=== PATIENT | male | born 1960 | race African-American/Black ===

== ENCOUNTER 2018-04-12 08:59 | Day surgery (SDC) | payer OTHER ==
[2018-04-12] MEDS ORDERED: ALBUTEROL SULFATE 0.083% NEB 2.5 MG/3 ML AMPUL NEB ONE (09:52)
[2018-04-12] MEDS ORDERED: PROMETHAZINE HCL INJ 25 MG/1 ML VIAL IV PRN ×2 (10:45)
[2018-04-12] MEDS ORDERED: FENTANYL CITRATE INJ/PF 100 MCG/2 ML AMPUL IV PRN ×3 (10:45)
[2018-04-12] MEDS ORDERED: DIPHENHYDRAMINE HCL 50 MG/ML VIAL IV PRN (10:45)
[2018-04-12] MEDS ORDERED: MEPERIDINE HCL/PF INJ 25 MG/1 ML DISP.SYRIN IV PRN (10:45)
[2018-04-12 15:34] VITALS: BP 132/89
--- NOTE | 2018-04-12 20:04 | Operative Report ---
Operative Report DATE OF SURGERY: 04/12/18 Operative Report: the risk, benefits and alternatives of the procedure are explained to the patient in detail he is taken to the OR Time out is called and Propofol is provided rectal exam is done the Olympus videoscope is inserted into the patient's rectum it is advanced to the cecum this is identified by the usual anatomical landmarks the scope is slowly withdrawn the prep is good tubular and concentric views of the colon are obtained retroflexion is obtained following this the EGD is performed the esophagus, stomach and duodenum are obtained PREOPERATIVE DIAGNOSIS: dysphagia. colorectal cancer screening POSTOPERATIVE DIAGNOSIS: 1 descending colon polyp removed via snare polypectomy. 3 sigmoid polyps removed, only 2 were retrieved. 3 rectal polyps revmoed via snare polypectomy. internal hemorrhoids. on EGD, the is a schatzki 's ring that was broken. esophagitis noted. gastritis, s/p biopsy to rule out for H/Pylori. duodenitis OPERATION: colonoscopy with snare polypectomy. EGD with biopsy SURGEON: ZACH GARCIA ANESTHESIA: LMAC TISSUE REMOVED OR ALTERED: as noted above COMPLICATIONS: none ESTIMATED BLOOD LOSS: none INTRAOPERATIVE FINDINGS: as noted above PROCEDURE: patient tolerated the procedure well did not have any post procedure complications he is discharged in good condition discharge date: 04/12/18 discharge diet: regular discharge activity: regular 2-3 weeks follow up 1 year surveillance due to the number of polyps will wait on biopsy suspect Schatzki's ring the cause for his dysphagia if does not help, may need manometry study
--- NOTE | 2018-04-12 22:01 | EKG REPORT ---
SEVERITY:- ABNORMAL ECG - SINUS RHYTHM PROBABLE LEFT ATRIAL ABNORMALITY RBBB AND LPFB INFERIOR INFARCT, AGE INDETERMINATE : Confirmed by: Irena Zafar 12-Apr-2018 22:00:03
== END 2018-04-12 15:25 | disposition home or self-care (01) ==
LOC: OROUT 08:59
PROVIDERS: ATTEND Internal Medicine Gastroenterology
DX: Z12.11 Encounter for screening for malignant neoplasm of colon (principal); D12.4 Benign neoplasm of descending colon; K63.5 Polyp of colon; K29.50 Unspecified chronic gastritis without bleeding; K20.9 Esophagitis, unspecified; K22.2 Esophageal obstruction; K29.80 Duodenitis without bleeding; F17.210 Nicotine dependence, cigarettes, uncomplicated; Z79.899 Other long term (current) drug therapy
CPT/HCPCS: 43239; 45380; 813; 88305; 93005; 93010

== ENCOUNTER → 2018-09-23 | Outpatient (CLI) | payer OTHER ==
--- NOTE | 2018-09-23 13:42 | RADIOLOGY REPORT (SQ) ---
EXAM DESCRIPTION: MRI HEAD COMBO COMPLETED DATE/TIME: 09/23/2018 1:22 pm REASON FOR STUDY: DISEQUILIBRIUM SYNDROME E87.8 OTH DISORDERS OF ELECTROLYTE AND FLUID BALANCE, NEC COMPARISON: None. TECHNIQUE: Multiplanar imaging includes non-contrasted T1, T2, FLAIR, diffusion with ADC map and pos t gadolinium contrast sequences. Additional thin slice images with and without gadolinium contrast a cquired in the posterior fossa. Images stored on PACS. CONTRAST TYPE AND DOSE: 15 mL Dotarem. RENAL FUNCTION: GFR > 60. LIMITATIONS: None. FINDINGS: ANATOMY: No anomalies. Normal vascular flow voids. Pituitary fossa normal. CSF SPACES: Normal in size and contour. CEREBRUM: Sulci and gyri normal in size and contour. Scattered areas of high signal in the periventr icular white matter compatible with microvascular ischemia. . No hemorrhage. No edema, masses or ma ss effect. No enhancing lesions. POSTERIOR FOSSA: No signal alteration. No hemorrhage. No edema, masses or mass effect. Internal mary tory canals, cerebello-pontine angles, mastoids normal. No enhancing lesions. Detailed imaging of the 5th, 7th, and 8th nerves and [place] within normal limits. DIFFUSION IMAGING: Negative for acute or sub-acute infarction. ORBITS: No masses. Globes normal. PARANASAL SINUSES: No fluid levels. Mucosa normal. OTHER: No other significant finding. IMPRESSION: No significant finding in the posterior fossa. Mild microvascular ischemia. TECHNICAL DOCUMENTATION: JOB ID: [id number] [employer]- All Rights Reserved Reading location - IP/workstation name: [email or web address]
== END ==
LOC: RAD 11:53
PROVIDERS: ATTEND Otolaryngology
DX: E87.8 Other disorders of electrolyte and fluid balance, not elsewhere classified (principal)
CPT/HCPCS: 82565; 70553; A9576

== ENCOUNTER → 2019-02-01 | Outpatient (CLI) | payer OTHER ==
--- NOTE | 2019-02-01 09:24 | ST Modified Barium Swallow ---
Recommendation - Recommendations Recommendations: Normal oral and pharyngeal phase swallowing seen. No additional speech pathology follow up or recommendations indicated. Educated patient on reflux precautions. Medical Diagnoses - Medical Diagnoses Medical Diagnosis Description & ICD-10 Code(s): dysphagia R13.10 Other Medical Diagnoses/Co-Morbidities: per patient report: reflux, "mass in right lung". per medical record review: moderate esophageal dysmotility found in 2016, Schatzki's ring found and broken in 2018. ST Modified Barium Swallow - General Date: 02/01/19 Referring Physician: Dr. Willams Risks/Precautions: None Date of Onset: 01/10/14 - approximate onset date per patient report Reason for Referral: difficulty swallowing - History History obtained from: Patient, Other - EMR -: Medical - per patient report: Patient states having difficulty with foods occasionally "getting stuck" in his lower throat for 5 years. Reports that this happens infrequently, every 2-3 weeks. Does report having previously been on reflux medications, which helped, but states that they don't work any more. Is no longer taking reflux medications. Therapist reviewed patient's EMR, which indicated a barium swallow in 2016 found "moderate esophageal dysmotility". EMR also contained record of a Schatzki's ring being identified and broken in 2018. Patient denies pneumonia or bronchitis. Medications: per patient report: aspirin, blood pressure medication Allergies: none reported - Functional Status Prior Functional Status: INDEPENDENT: feeding Current Functional Limitations: feeding - infrequent globus - Subjective Patient/caregiver goal(s): r/o struct. abnormality Cognitive-Linguistic Function: WNL Speech Intelligibility: WNL Current Nutritional Means: PO Current PO diet: Regular Pain: Patient reports, 0/5 - Objective Assessment: Upright, Left Lateral - Food Trials Used Food trials used: Thin liquids, Pureed, Regular The patient: Was Able to Self Feed - Oral-Motor Skills Dentition: Partial Velo-pharyngeal function: Unremarkable Laryngeal Function: clear voicing - Assessment Oral prep: Normal Labial closure: Adequate Leakage: None Mastication: Adequate Lingual Movement: Normal Oral stage: Normal for this Procedure - Pharyngeal Stage Initiation of Pharyngeal Stage Reflex: Normal Decreased laryngeal elevation: No Reduced Velopharyngeal Closure: no Reduced pressure generation: No reduced tongue-based retraction: No Pre-swallow pooling in valleculae: None Pre-Swallow pooling in pyriforms: None Reduced Thyro-Hyoid approximation: No Reduced epiglottic excursion: No Reduced pharyngeal peristalsis/contraction: No Multiple Swallows with: Cleared w/ Dry Swallow Post-swallow residulas vallecular: Mild Post-Swallow residuals in pyriforms: None Reduced Cricopharyngeal opening: No - Fall Risk Assessment Medications/Conditions that increase fall risks include: Antidepressants, sedatives, anti-arrhythmic, diuretic, benzodiazipenes, neuroleptics. BP r egulation problems, cardiac problems, balance or gait deficits, neurological problems. Is patient considered at risk for falls: no Fall Risk Actions Taken: No action needed - Behavioral Observations During evaluation process patient: was pleasant, was cooperative, able to answer questions - Treatment / Educational Needs: Treatment/Education Needs: Treatment consisted of patient education on the role of the Speech Pathologist. Patient's plan of care and golas were communicated as well as scheduling and attendance policies. Recommendations for initial home program were shared. Patient demonstrated understanding and verbalized agreement. - Impression/Summary Laryngeal Penetration: Yes - during swallow with thin liquids. Did not reach level of vocal folds. Challenged the swallow with multiple subsequent straw sips, no deep penetration or aspiration seen. Tracheal Aspiration: no Patient presents with: Normal swallow at eval Risk of Aspiration: Minimal Risk of nutritional compromise: None - Recommendations Solid diet recommendations: Regular Liquid Diet Modification: Thin Pt/Family education and followup with MD: Yes Dysphagia therapy with SUPERVISOR OF WAY: no Reflux Precautions: Taught to Patient Recommended techniques: Fully Upright During Meal Supervision: Independent Information, Precautions and Recommendations: Patient (Written), Patient (Verbal) - Plan of Care Strategies to optimize patient understanding include:: ongoing assessment of educational needs, implementation of educational strategies, and re-education. - - -: Thank you for the opportunity to work with this patient and his/her family. Should you have any questions about this patient's plan or progress, I can be reached at [phone].
--- NOTE | 2019-02-01 10:05 | RADIOLOGY REPORT (SQ) ---
EXAM DESCRIPTION: SUPA SWALLOW COMPLETED DATE/TIME: 02/01/2019 9:09 am REASON FOR STUDY: DYSPHAGIA (R13.10) R13.10 DYSPHAGIA, UNSPECIFIED COMPARISON: None. TECHNIQUE: Videofluoroscopic swallowing examination was performed in conjunction with speech patholo gy. Videofluoroscopic imaging was obtained and reviewed and these are the findings: RADIATION DOSE: Fluoro time 1.32 minutes 1 images saved to PACS. LIMITATIONS: None FINDINGS: The patient was brought into the fluoro room and placed upright on a modified barium swall ow chair. The patient was then given multiple consistencies mixed with barium to swallow under live fluoroscopic video guidance. According to the Speech Pathologist there was flash laryngeal penetrati on seen with thin barium. No aspiration identified. All other consistencies swallowed without incid ent. Please refer to the speech pathology report for further details. IMPRESSION: FLASH LARYNGEAL PENETRATION WITHOUT ASPIRATION SEEN WITH THIN BARIUM. PLEASE SEE SPEECH PATHOLOGIST REPORT FOR OTHER FINDINGS AND RECOMMENDATIONS. COMMENT: NONE Quality ID [id number]: Final reports for procedures using fluoroscopy that document radiation exposure alcides selvin, or exposure time and number of fluorographic images (if radiation exposure indices are not avail able) TECHNICAL DOCUMENTATION: JOB ID: [id number] [employer]- All Rights Reserved Reading location - IP/workstation name: [email or web address] [id number]
== END ==
LOC: RAD 08:17
PROVIDERS: ATTEND Internal Medicine Pulmonary Disease
DX: R13.10 Dysphagia, unspecified (principal); R91.8 Other nonspecific abnormal finding of lung field
CPT/HCPCS: 74230

== ENCOUNTER → 2019-09-11 | Outpatient (CLI) | payer OTHER ==
--- NOTE | 2019-09-11 15:02 | RADIOLOGY REPORT (SQ) ---
EXAM DESCRIPTION: PET CT SKULL/THIGH COMPLETED DATE/TIME: 09/11/2019 1:29 pm REASON FOR STUDY: PULMONARY NODULE (R91.1) R91.8 OTHER NONSPECIFIC ABNORMAL FINDING OF LUNG FIELD COMPARISON: Prior CT and PET report. No images available. RADIONUCLIDE AND DOSE: 11.21 mCi F18 FDG The route of agent administration: Intravenous FASTING BLOOD SUGAR: 97 mg/dl CONTRAST TYPE AND DOSE: No CT contrast given. TECHNIQUE: Blood glucose level was verified. Above dose of FDG was injected intravenously. 2-D seg mented attenuation correction images were obtained from the base of the skull to the midthighs. Nonc ontrast CT images were obtained for attenuation correction and fusion with emission images. CT image s were performed without oral or intravenous contrast and are not sensitive for parenchymal lesions. A series of overlapping emission PET images were obtained. Images reviewed and manipulated at [facility] work station by the radiologist. Images stored on PACS. LIMITATIONS: None. FINDINGS: HEAD AND NECK: Symmetric uptake throughout the oropharynx without CT correlate, likely ph ysiologic. Medialization of the right vocal fold without asymmetric FDG uptake. No other areas of a bnormal metabolic activity in the soft tissues of the head and neck. CHEST: There is a right lower lobe medial nodular opacity measuring 1.8 cm (series 3, image 106) with mild ill-defined FDG uptake (max SUV 2.6). No other areas abnormal focal uptake within the thorax. ABDOMEN AND PELVIS: Background hepatic activity max SUV 3.1. No focal areas of abnormal uptake withi n the abdomen or pelvis. Physiologic activity noted within the gastrointestinal and genitourinary sy stem. PROXIMAL LOWER EXTREMITIES: No areas of abnormal metabolic activity in the soft tissues of the lower extremities. BONES: No abnormal metabolic activity in the visualized skeleton. ADDITIONAL CT FINDINGS: 1.8 cm right lower lobe irregular nodule. Scattered coronary atherosclerosis . Circumferential distal esophageal wall thickening mild gas fluid level. No evidence of acute intr a-abdominal/pelvic process. IMPRESSION: 1. 1.8 cm right lower lobe pulmonary nodule with mild FDG uptake (max SUV 2.6, backgrou nd hepatic activity max SUV 3.1). Findings nonspecific and may be seen with infectious/inflammatory etiology although neoplastic process not excluded. 2. No other areas of abnormal pathologic FDG uptake. 3. Medialization of the right vocal fold without asymmetric FDG uptake. Findings can be seen with f ocal cord paralysis. Direct visualization could be considered for further characterization. 4. Diffuse circumferential distal esophageal wall thickening which can be seen with esophagitis. TECHNICAL DOCUMENTATION: JOB ID: [id number] [employer]- All Rights Reserved Reading location - IP/workstation name: [email or web address]
== END ==
LOC: RAD 08:02
PROVIDERS: ATTEND Internal Medicine Pulmonary Disease
DX: R91.1 Solitary pulmonary nodule (principal); R91.8 Other nonspecific abnormal finding of lung field
CPT/HCPCS: 78815; A9552

== ENCOUNTER → 2020-09-23 | Outpatient (CLI) | payer OTHER ==
--- NOTE | 2020-09-25 11:13 | RADIOLOGY REPORT (SQ) ---
EXAM DESCRIPTION: PET CT SKULL/THIGH IMAGES COMPLETED DATE/TIME: 09/23/2020 3:46 pm REASON FOR STUDY: (R91.1)SOLITARY PULMONARY NODULE R91.1 SOLITARY PULMONARY NODULE COMPARISON: PET from 09/11/2019. RADIONUCLIDE AND DOSE: 10.2 mCi F18 FDG The route of agent administration: Intravenous FASTING BLOOD SUGAR: 89 mg/dl CONTRAST TYPE AND DOSE: No CT contrast given. TECHNIQUE: Blood glucose level was verified. Above dose of FDG was injected intravenously. 2-D seg mented attenuation correction images were obtained from the base of the skull to the midthighs. Nonc ontrast CT images were obtained for attenuation correction and fusion with emission images. CT image s were performed without oral or intravenous contrast and are not sensitive for parenchymal lesions. A series of overlapping emission PET images were obtained. Images reviewed and manipulated at [facility] [employer] work station by the radiologist. Images stored on PACS. LIMITATIONS: None. FINDINGS: HEAD AND NECK: No areas of abnormal metabolic activity in the soft tissues of the head and neck. CHEST: The nodule in the right lower lobe (image 122 of series 3) has increased in size since the chantel or PET and it measures 2.5 x 1.7 cm compared to 1.8 x 1 cm on the prior PET ; the intensity of FDG up take within the nodule has also increased and it has a maximum SUV of 4.8 (compared to 2.6 on the chantel or PET). The 9 mm superior paratracheal lymph node on image 74 series 3 is FDG avid with a maximum S UV of 4.2. The 12 mm short axis subcarinal lymph node on image 97 of series 3 is also FDG avid with a maximum SUV of 6.9. The focus of FDG uptake near the bifurcation of the bronchus intermedius with a maximum SUV of 3.2 likely represents a lymph node. There are no other areas of abnormal metabolic activity in the chest. ABDOMEN AND PELVIS: The liver demonstrates homogeneous FDG uptake with an average SUV of 2.6. There is expected physiologic activity throughout the gastrointestinal and genitourinary tracts. There are no areas of abnormal metabolic activity in the abdomen and pelvis. PROXIMAL LOWER EXTREMITIES: No areas of abnormal metabolic activity in the soft tissues of the lower extremities. BONES: No areas of abnormal metabolic activity in the skeleton. ADDITIONAL CT FINDINGS: No acute abnormality on the noncontrast CT. OTHER: No other findings. IMPRESSION: 1. Enlarging FDG avid nodule in the right lower lobe (image 122 of series 3) concerning for a malignant neoplasm. 2. FDG avid right hilar and mediastinal adenopathy concerning for [place] metastases. TECHNICAL DOCUMENTATION: JOB ID: [id number] [employer]- All Rights Reserved Reading location - IP/workstation name: [email or web address]
== END ==
LOC: RAD 12:52
PROVIDERS: ATTEND Internal Medicine Pulmonary Disease
DX: R91.1 Solitary pulmonary nodule (principal)
CPT/HCPCS: 78815; A9552

== ENCOUNTER → 2020-10-06 | Outpatient (CLI) | payer OTHER ==
[2020-10-06 15:53] LABS: ABSOLUTE EOSINOPHILS # (AUTO) 0.1 10^3/uL (0.0-0.6); ABSOLUTE LYMPHOCYTES (AUTO) 2.1 10^3/uL (0.5-4.7); ABSOLUTE MONOCYTES (AUTO) 0.8 10^3/uL (0.1-1.4); ABSOLUTE NEUT (AUTO) 3.2 10^3/uL (1.7-8.2); BASOPHILS % (AUTO) 0.5 % (0-2); EOSINOPHILS % (AUTO) 2.2 % (0-6); HEMATOCRIT 42.4 % (37.9-51.0); LYMPHOCYTES % (AUTO) 33.5 % (13-45); MEAN CORPUSCULAR HEMOGLOBIN 35.2 pg (27.0-33.4); MEAN CORPUSCULAR HGB CONC 35.3 g/dL (32.0-36.0); MEAN CORPUSCULAR VOLUME 100 fl (80-97); MONOCYTES % (AUTO) 12.1 % (3-13); PLATELET COUNT 225 10^3/uL (150-450); RED BLOOD COUNT 4.24 10^6/uL (4.35-5.55); RED CELL DISTRIBUTION WIDTH 13.5 % (11.5-14.0); SEGMENTED NEUTROPHILS % (AUTO) 51.7 % (42-78); TOTAL CELLS COUNTED % (AUTO) 100 %; WHITE BLOOD COUNT 6.3 10^3/uL (4.0-10.5)
[2020-10-06 15:57] LABS: INTERNATIONAL RATION (INR) 1.14; PARTIAL THROMBOPLASTIN TIME 37.5 SEC (23.5-35.8); PROTHROMBIN TIME 14.8 SEC (11.4-15.4)
== END ==
LOC: OD 14:08
PROVIDERS: ATTEND Internal Medicine Pulmonary Disease
DX: R91.8 Other nonspecific abnormal finding of lung field (principal)
CPT/HCPCS: 36415; 85025; 85610; 85730